=== PATIENT | male | born 1965 | race Caucasian/White ===

== ENCOUNTER 2019-11-18 12:42 | Outpatient (CLI) | payer SELFPAY ==
--- NOTE | 2019-11-18 12:52 | XR_ITS ---
WS: [id number] RIBS LEFT TECHNIQUE: 3 views left ribs CLINICAL INFORMATION: FRACTURE, RIB, LEFT COMPARISON: None. FINDINGS: No acute appearing left rib fractures. Osteopenia. Left lung is well aerated. Thoracic curve convex l eft. XR/XR ribs LT 2V* [id number] IMPRESSION: Osteopenia. No visualized acute left rib fractures.
--- NOTE | 2019-11-18 12:52 | XR_ITS ---
WS: [id number] WRIST LEFT TECHNIQUE: 3 views of the left wrist CLINICAL INFORMATION: WRIST PAIN, LEFT COMPARISON: None. FINDINGS: Trauma/fracture involving the distal radius extending to the radiocarpal joint at the radial styloid. Evidence of some callus formation. Distal ulna appears normal. Scaphoid appears normal. No other vis ualized fractures. IMPRESSION: Nondisplaced fracture involving the distal radius with extension to the radiocarpal joint. Evidence o f some callus formation and healing in this area. Recommend correlation with area of pain
== END 2019-11-18 12:43 | disposition home or self-care (01) ==
LOC: RADWPI 12:49
PROVIDERS: PCP Nurse Practitioner Family; Visit Provider Nurse Practitioner Family
DX: M25.532 Pain in left wrist (principal); S22.32XA Fracture of one rib, left side, initial encounter for closed fracture; S52.502A Unspecified fracture of the lower end of left radius, initial encounter for closed fracture; X58.XXXA Exposure to other specified factors, initial encounter
CPT/HCPCS: 71100; 73110

== ENCOUNTER → 2019-11-30 15:34 | Outpatient (BNVA) | payer SELFPAY | PROVIDERS: PCP Nurse Practitioner Family; Visit Provider Specialist | DX: S52.509D Unspecified fracture of the lower end of unspecified radius, subsequent encounter for closed fracture with routine healing (principal); X58.XXXD Exposure to other specified factors, subsequent encounter | CPT/HCPCS: 73110 ==

== ENCOUNTER 2019-12-28 13:23 | Outpatient (CLI) | payer SELFPAY ==
--- NOTE | 2019-12-28 13:31 | USCV_ITS ---
Yfn Melendez Age: 54 Gender: M : 1965 Exam Date: 12/28/2019 13:25 Ordering Phys: Melba Brand Technologist: Jillian Arnold Exam Location: [facility] [place]: RT CALF SWELLING HISTORY: SWELLING X 1 WK PROCEDURES: Venous duplex imaging was performed in only the right lower extremity. The following venous structures were evaluated: common femoral vein, profunda vein, proximal portion of the greater saphenous vein, superficial femoral vein, and the popliteal vein. In addition, the posterior tibial veins were evaluated. In addition, the posterior tibial and peroneal trunk were evaluated. FINDINGS: Normal 2-D Doppler and augmentation and compressibility throughout the lower extremity venous structures. Additional imaging through the proximal calf veins also reveals no thrombus. Limited evaluation of the greater saphenous vein is patent with no thrombus. CONCLUSIONS No DVT right lower extremity. Dr. Julisa Flores DO (Electronically Signed) Final Date: 28 December 2019 14:17 S
== END 2019-12-28 13:24 | disposition home or self-care (01) ==
LOC: RAD 13:28
PROVIDERS: PCP Nurse Practitioner Family; Visit Provider Nurse Practitioner Family
DX: M79.89 Other specified soft tissue disorders (principal)
CPT/HCPCS: 93971